=== PATIENT | female | born 1940 | race Two or more races ===

== ENCOUNTER → 2016-11-02 | Outpatient (CLI) | payer OTHER, MEDICAID | LOC: CIMAGING 09:52 | PROVIDERS: ATTEND Family Medicine | DX: Z12.31 Encounter for screening mammogram for malignant neoplasm of breast (principal) | CPT/HCPCS: G0202 ==

== ENCOUNTER → 2017-11-15 | Outpatient (CLI) | payer OTHER, MEDICAID | LOC: CIMAGING 09:48 | PROVIDERS: ATTEND Family Medicine | DX: Z12.31 Encounter for screening mammogram for malignant neoplasm of breast (principal); N63.11 Unspecified lump in the right breast, upper outer quadrant ==

== ENCOUNTER → 2017-11-29 | Outpatient (CLI) | payer OTHER, MEDICAID | LOC: CIMAGING 12:45 | PROVIDERS: ATTEND Family Medicine | DX: R92.8 Other abnormal and inconclusive findings on diagnostic imaging of breast (principal) | CPT/HCPCS: 76641-PO ==